=== PATIENT | female | born 1965 | race Hispanic/Latino ===

== ENCOUNTER 2018-09-24 08:22 | Outpatient (CLI) | payer BC ==
--- NOTE | 2018-09-24 09:51 | ULT ---
ULTRASOUND RIGHT BREAST: Indication: Focal tenderness, 9 o'clock position right breast. No mammographic abnormality seen in th is region. FINDINGS: No sonographic abnormality identified at the site of tenderness at the 9 o'clock position right breas t. IMPRESSION: Ultrasound findings of BIRADS 1 - negative. Recommend clinical correlation regarding breast tendernes s. POS: OFF
== END 2018-09-24 08:23 | disposition home or self-care (01) ==
LOC: BICMAMMO 08:22
PROVIDERS: ATTEND Internal Medicine
DX: N64.4 Mastodynia (principal); R92.1 Mammographic calcification found on diagnostic imaging of breast; Z91.89 Other specified personal risk factors, not elsewhere classified; Z80.3 Family history of malignant neoplasm of breast
CPT/HCPCS: 77066; G0279

== ENCOUNTER 2018-10-16 18:13 | Emergency (ER) | payer BC ==
[2018-10-16] MEDS ORDERED: Acetaminophen 500 MG TAB ONE (19:28)
[2018-10-16 20:30] LABS: Bilirubin Negative (Negative); Blood, Urine Negative (Negative); Clarity CLEAR (Clear); Glucose, Urine (Dipstick) Negative (Negative); Leukocyte Moderate (Negative); Nitrite Negative (Negative); Protein, Urine (Dipstick) Negative (Neg-Trace); Specific Gravity, Urine 1.018 (1.002-1.036); Urobilinogen 0.2 mg/dL (0.2-1.0)
[2018-10-16 20:33] LABS: Bacteria/HPF None Seen HPF (None Seen); Hyaline Casts/LPF 0-3 HYALINE CAST LPF (0-3 Hyaline); Pathc Cast-AUWi Flag 0.29 (0-2.49); Squamous Epithelial 0-3 HPF (0-3)
== END 2018-10-16 21:11 | disposition home or self-care (01) ==
LOC: ERS 18:13
DX: M25.551 Pain in right hip (principal); N39.0 Urinary tract infection, site not specified; E78.5 Hyperlipidemia, unspecified; Z79.899 Other long term (current) drug therapy
CPT/HCPCS: 81003; 81015; 99283

== ENCOUNTER 2020-08-05 07:12 | Outpatient (CLI) | payer BC, OTHER ==
[2020-08-05 14:26] LABS: INR-International Normal Ratio 0.9; Prothrombin Time 12.2 sec (12.0-14.7)
[2020-08-05 14:27] LABS: PTT 34.7 sec (22.9-36.1)
[2020-08-05 14:44] LABS: Anion Gap 12 mmol/L (10-20); BUN (Urea Nitrogen) 16 mg/dL (9.8-20.1); Calc. Creatinine Clearance 0 mL/min (70-130); Calcium 9.8 mg/dL (7.8-10.44); Carbon Dioxide 28 mmol/L (22-29); Chloride 104 mmol/L (98-107); Estimated GFR-MDRD Greater than 90; Glucose 103 mg/dL (70-105); Potassium 5.1 mmol/L (3.5-5.1); Sodium 139 mmol/L (136-145)
[2020-08-05 15:10] LABS: Band 15 % (5-11); Eosinophils 4 % (0-10); Hemoglobin 13.1 g/dL (12.0-16.0); Lymphocytes 27 % (21-51); MDiff Complete? YES; Mean Corpuscular HGB CONC 34.1 g/dL (32.0-36.0); Mean Corpuscular Hemoglobin 32.9 pg (27.0-31.0); Mean Corpuscular Volume 96.5 fL (78.0-98.0); Monocytes 4 % (0-10); Neutrophil 30 % (42-75); Platelet Count 203 thou/uL (130-400); Platelet Morphology Comment Appears Adequate; RBC Distribution Width 11.4 % (11.5-14.5); RBC Morphology Normal; Reactive Lymphocytes 20 % (0-10); Red Blood Cell (RBC) Count 3.98 mill/uL (4.20-5.40); White Blood Cell (WBC) Count 6.3 thou/uL (4.8-10.8)
[2020-08-06 14:54] LABS: SARS-CoV-2 MS2 Positive; SARS-CoV-2 N Gene Negative; SARS-CoV-2 S Gene Negative; SARS-CoV-2 by NAA Not Detected (NotDetected); SARS-CoV-2 orf1ab Negative
--- NOTE | 2020-08-07 13:09 | EKG ---
Test Reason : Blood Pressure : / mmHG Vent. Rate : 053 BPM Atrial Rate : 053 BPM P-R Int : 178 ms QRS Dur : 102 ms QT Int : 468 ms P-R-T Axes : 046 029 052 degrees QTc Int : 439 ms Sinus bradycardia Otherwise normal ECG No previous ECGs available Confirmed by TOÑITO ATWOOD MD ([id number]) on 08/07/2020 1:08:36 PM Referred By: [facility] Confirmed By:TOÑITO ATWOOD MD
== END 2020-08-05 07:13 | disposition home or self-care (01) ==
LOC: LABBT 07:12
PROVIDERS: ATTEND Internal Medicine Cardiovascular Disease
DX: Z01.818 Encounter for other preprocedural examination (principal); I47.1 Supraventricular tachycardia; Z20.828 Contact with and (suspected) exposure to other viral communicable diseases
CPT/HCPCS: 80048; 85007; 85027; 85610; 85730; 87635; 93005; 93010; U0003

== ENCOUNTER 2020-08-10 05:50 | Day surgery (SDC) | payer BC ==
[2020-08-08 11:03] VITALS: BMI 45.1
[2020-08-10] MEDS ORDERED: Lidocaine 1% (PF) 30 ML VIAL ONE (06:42)
[2020-08-10] MEDS ORDERED: Heparin 10,000 UNITS/ 10 ML VIAL ONE (06:42)
[2020-08-10] MEDS ORDERED: Propofol 1,000 MG/100 ML VIAL IV ONE ×3 (06:56→11:28)
[2020-08-10] MEDS ORDERED: Lidocaine 2% PF 5 ML VIAL ONE (07:06)
[2020-08-10] MEDS ORDERED: Isoproterenol 0.2 MG/1 ML AMP ONE (08:33)
[2020-08-10] MEDS ORDERED: Propofol 500 MG/50 ML VIAL ONE ×2 (08:47→09:23)
[2020-08-10] MEDS ORDERED: Fentanyl 100 MCG/2 ML VIAL ONE ×3 (08:50→11:16)
[2020-08-10] MEDS ORDERED: Lidocaine 1% PF 5 ML VIAL ONE (10:33)
[2020-08-10] MEDS ORDERED: PROPOFOL 200 MG/20 ML VIAL ONE (10:33)
[2020-08-10] MEDS ORDERED: PROPOFOL 60 ML ONE (10:55)
--- NOTE | 2020-08-10 15:13 | EKG ---
Test Reason : POST ABLATION Blood Pressure : / mmHG Vent. Rate : 060 BPM Atrial Rate : 060 BPM P-R Int : 178 ms QRS Dur : 112 ms QT Int : 436 ms P-R-T Axes : 034 043 015 degrees QTc Int : 436 ms Normal sinus rhythm Normal ECG Confirmed by FRANCHESCA ROMERO ([id number]) on 08/10/2020 3:13:23 PM Referred By: [facility] Confirmed By:FRANCHESCA ROMERO
--- NOTE | 2020-08-10 17:39 | OP ---
DATE OF PROCEDURE: 08/10/2020 PROCEDURE PERFORMED: Electrophysiology study and radiofrequency ablation. REFERRING PHYSICIAN: Constantino Barlow MD REASON FOR PROCEDURE: Ms. Peacock is a 54-year-old woman, who has history of recurrent palpitations and up to 15-minutes highly symptomatic. She has had a COVID infection about a month ago. She is here for EP study and radiofrequency ablation. DESCRIPTION OF PROCEDURE: The patient received deep sedation by Anesthesia specialist. After adequate oral sedation achieved, the left and right femoral venous areas were prepped, draped, anesthetized using subcutaneous lidocaine. Under ultrasound guidance, both femoral veins were cannulated. From the left femoral vein, 6 and 8-[place] sheaths were used to advance an octapolar and a DecaNav decapolar catheter to the right atrium. 3D map of the right atrium, His bundle area, CS and cavotricuspid isthmus areas were clearly delineated. Following findings were noted. The baseline rhythm was sinus rhythm with cycle length of 1042 milliseconds, WI 172 milliseconds, QRS 127 milliseconds, QT 449 milliseconds, AH 93 milliseconds, HV 48 milliseconds. The AV Wenckebach cycle length was 330 milliseconds. Retrograde Wenckebach cycle length was 350 milliseconds. Concentric retrograde VA conduction was seen. The atrial extrastimuli testing yielded AV sita ERP at 600/240 milliseconds. No definite dual AV sita physiology was noted at baseline. Following that, burst atrial pacing was performed from the CS os, pacing left atrium. We were able to induce typical appearing isthmus dependent atrial flutter. Overdrive atrial pacing though induced atrial fibrillation from atrial flutter. The right femoral vein access was used to advance a ThermoCool SFST catheter to the right atrium. The cavotricuspid isthmus ablation was performed with total of 6 minutes and 48 seconds duration at 40 lemos with an irrigated tip catheter. We were able to achieve a transisthmus block with transisthmus time increasing to 160 milliseconds and the transisthmus block was demonstrated by longest transisthmus time adjacent to the ablation line. The atrial flutter was not re-inducible after this on and off Isuprel. On the other hand, we were able to induce an additional tachycardia, which was narrow complex with occasional aberration, but normal HV interval. This tachycardia was at cycle length of 296 milliseconds, the VA timing on this was 129 milliseconds. Burst ventricular overdrive pacing entering the tachycardia and VA-VA response was seen suggestive of non-atrial tachycardia at this point. The ventricular extrastimuli testing at His refractoriness did not shorten the AA interval, thus we could not prove presence of accessory pathway. Also during parahisian pacing, we did not see retrograde VA stability during pure His capture. The decision was made to perform a slow pathway modification, which was performed. Additional mapping during ventricular pacing was performed and the earliest activation of atrium during ventricular pacing was also ablated. These maneuvers eliminated the inducibility of this AV reentry tachycardia. On isuprel a third type of narrow complex tachycardia was inducible, which was clearly atrial tachycardia during ventricular overdrive pacing yielded VA-AV response. This tachycardia cycle length was 320 milliseconds and the activation map yielded earliest activation in the tricuspid anulus area in the superior right atrium about 12 to 1 o'clock location. Radiofrequency ablation at this location eliminated the inducibility of this atrial arrhythmia on and off Isuprel. At the end of the case, the HV interval did not change about 48 milliseconds, AV Wenckebach cycle length was 340 milliseconds, retrograde cycle length changed to 530 milliseconds. AV sita ERP was 500/200 milliseconds. The catheter was removed from body and the Vascade closure was performed to all 3 femoral venous access sites. The cardiac silhouette did not change with the procedure. Total ablation time was 18 minutes and 55 seconds. CONCLUSION: 1. Three separate supraventricular arrhythmias were inducible a. An atrial flutter with typical isthmus dependent appearance was induced and the cavotricuspid isthmus ablation eliminated this arrhythmia. b. 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 Junctional escape rhythm noted during the ablations and no AV block was seen. 2. An addition right atrial tachycardia induced and ablated at the tricuspid anulus, 12 to 1 o'clock location. 3. No re-inducible arrhythmia at the end of the case, although during the Isuprel administration earlier, transient atrial fibrillation was seen, but was not sustained. 4. Normal AV sita and His-Purkinje function. 5. No evidence of accessory pathway. PLAN: Continue monitoring for recurrent arrhythmias. Job ID: [id number] [facility]
== END 2020-08-10 17:33 | disposition home or self-care (01) ==
LOC: SDC 05:50
PROVIDERS: ATTEND Internal Medicine Cardiovascular Disease
PROC: 4A023FZ Measurement of Cardiac Rhythm, Percutaneous Approach (ICD-10-PCS; principal; 2020-08-10)
PROC: 02K83ZZ Map Conduction Mechanism, Percutaneous Approach (ICD-10-PCS; principal; 2020-08-10)
PROC: 4A0234Z Measurement of Cardiac Electrical Activity, Percutaneous Approach (ICD-10-PCS; principal; 2020-08-10)
PROC: 02583ZZ Destruction of Conduction Mechanism, Percutaneous Approach (ICD-10-PCS; principal; 2020-08-10)
DX: I47.1 Supraventricular tachycardia (principal); I50.9 Heart failure, unspecified; E78.5 Hyperlipidemia, unspecified; G47.30 Sleep apnea, unspecified; Z79.82 Long term (current) use of aspirin; Z79.899 Other long term (current) drug therapy; Z88.5 Allergy status to narcotic agent; Z88.8 Allergy status to other drugs, medicaments and biological substances; Z86.19 Personal history of other infectious and parasitic diseases
CPT/HCPCS: 76942; 93005; 93613; 93623; 93653; 93655; C1730; C1732; J1644; J2001; J2704; J3010